=== PATIENT | male | born 1950 | race African-American/Black ===

== ENCOUNTER 2021-12-14 11:03 | Outpatient (CLI) | payer MEDICARE, MEDICAID, SELFPAY | END 2021-12-14 11:04 | disposition home or self-care (01) | PROVIDERS: Visit Provider Otolaryngology | DX: H93.13 Tinnitus, bilateral (principal); H90.3 Sensorineural hearing loss, bilateral | CPT/HCPCS: 92557; 92567 ==

== ENCOUNTER 2022-06-08 08:52 | Outpatient (CLI) | payer MEDICARE, MEDICAID, SELFPAY | END 2022-06-08 08:53 | disposition home or self-care (01) | LOC: ANHAUDIO 08:53 | PROVIDERS: PCP Family Medicine; Referring Provider Family Medicine; Visit Provider Family Medicine | DX: H93.12 Tinnitus, left ear (principal) | CPT/HCPCS: 99199 ==